=== PATIENT | female | born 1965 | race African-American/Black ===

== ENCOUNTER 2016-10-24 20:34 | Inpatient (IN) | payer OTHER ==
--- NOTE | 2016-10-24 20:57 | HP ---
[id number] 4d 4-Moderate,w/Arms Extend Anxiety: 4-Mod. Anxious/Guarded Agitation: 4-Moderately Restless Paroxysmal Sweats: 1-Minimal Palms Moist Orientation: 1-Uncertain about Date Tacttile Disturbances: 0-None Auditory Disturbances: 0-None Visual Disturbances: 0-None Headache: 1-Very Mild CIWA-Ar Total Score: 16 Admission ROS BHS - HPI Chief Complaint: withdrawal sx Allergies/Adverse Reactions: Allergies Allergy/AdvReac Type Severity Reaction Status Date / Time No Known Allergies Allergy Verified 10/24/16 22:30 History of Present Illness: 51 years old female with long history of alcohol nicotine dependence has bipolar denies medical is admitted to detox Exam Limitations: No Limitations - Ebola screening Have you traveled outside of the country in the last 21 days: No Have you had contact with anyone from an Ebola affected area: No Have you been sick,other than usual withdrawal symptoms: No Do you have a fever: No - Review of Systems Constitutional: Chills, Loss of Appetite, Changes in sleep, Unintentional Wgt. Loss, Unexplained wgt Loss EENT: reports: No Symptoms Reported Respiratory: reports: No Symptoms reported Cardiac: reports: No Symptoms Reported GI: reports: Nausea, Poor Appetite, Poor Fluid Intake, Abdominal cramping : reports: No Symptoms Reported Musculoskeletal: reports: No Symptoms Reported Integumentary: reports: No Symptoms Reported Neuro: reports: Tremors Endocrine: reports: No Symptoms Reported Hematology: reports: No Symptoms Reported Psychiatric: reports: Judgement Intact, Anxious, Depressed Other Systems: Reviewed and Negative Patient History - Patient Medical History Hx Anemia: No Hx Asthma: No Hx Chronic Obstructive Pulmonary Disease (COPD): No Hx Cancer: No Hx Cardiac Disorders: No Hx Congestive Heart Failure: No Hx Hypertension: No Hx Hypercholesterolemia: No Hx Pacemaker: No HX Cerebrovascular Accident: No Hx Seizures: No Hx Dementia: No Hx Diabetes: No Hx Gastrointestinal Disorders: No Hx Liver Disease: No Hx Genitourinary Disorders: No Hx Sexually Transmitted Disorders: No Hx Renal Disease (ESRD): No Hx Thyroid Disease: No Hx Human Immunodeficiency Virus (HIV): No Hx Hepatitis C: No Hx Depression: No Hx Suicide Attempt: No Hx Bipolar Disorder: Yes Hx Schizophrenia: No - Patient Surgical History Past Surgical History: No - PPD History Previous Implant?: Yes Documented Results: Negative w/o proof Implanted On Prior [facility] Admission?: No PPD to be Administered?: Yes - Reproductive History Patient is a Female of Child Bearing Age (11 -55 yrs old): Yes Last Menstrual Period: 09/02/12 Patient : No - Smoking Cessation Smoking history: Current every day smoker Have you smoked in the past 12 months: Yes Aproximately how many cigarettes per day: 10 Cigars Per Day: 0 Hx Chewing Tobacco Use: No Initiated information on smoking cessation: Yes 'Breaking Loose' booklet given: 10/24/16 - Substance & Tx. History Hx Alcohol Use: Yes Hx Substance Use: Yes Substance Use Type: Alcohol, Cocaine, Marijuana Hx Substance Use Treatment: Yes - Substances Abused Alcohol Route: Oral Frequency: Daily Amount used: 1 pint volka Age of first use: 14 Date of Last Use: 10/24/16 Family Disease History - Family Disease History Family Disease History: Other: Father () Other Family History: "All are healthy" Admission Physical Exam [facility] - Physical General Appearance: Yes: Appropriately Dressed, Mild Distress, Alcohol on Breath , Thin, Tremorous, Irritable, Sweating, Anxious HEENTM: Yes: Hearing grossly Normal, Normal ENT Inspection, Normocephalic, Normal Voice Respiratory: Yes: Chest Non-Tender, Lungs Clear, Normal Breath Sounds, No Respiratory Distress, No Accessory Muscle Use Neck: Yes: Supple, Trachea in good position Breast: Yes: Breasts Symetrical Cardiology: Yes: Regular Rhythm, S1, S2, Tachycardia Abdominal: Yes: Non Tender, Soft, Other (regular bowel movement daily, c/o lower quardriant intermittent pain x "months" ova parasites stool x 3) Genitourinary: Yes: Within Normal Limits Back: Yes: Normal Inspection Musculoskeletal: Yes: full range of Motion, Gait Steady Extremities: Yes: Normal Inspection, Normal Range of Motion, Non-Tender, Tremors Neurological: Yes: Alert, Motor Strength 5/5, Normal Response, Depressed Affect Integumentary: Yes: Warm Lymphatic: Yes: Within Normal Limits - Diagnostic (1) Alcohol dependence with uncomplicated withdrawal Current Visit: Yes Status: Acute (2) Cocaine dependence, uncomplicated Current Visit: Yes Status: Chronic (3) Bipolar II disorder Current Visit: Yes Status: Suspected (4) Methadone maintenance therapy patient Current Visit: Yes Status: Chronic Comment: 70 mg verification pending (5) Weight loss Current Visit: Yes Status: Acute Cleared for Admission [facility] - Detox or Rehab [facility] Level of Care: Medically Managed Detox Regimen/Protocol: Librium [facility] Breath Alcohol Content Breath Alcohol Content: 0.055 Vital Signs - Vital Signs Vital Signs Refused: No Temperature: 97.2 F Temperature Source: Oral Pulse Rate: 83 Respiratory Rate: 18 Blood Pressure: 135/87 BP Location: Left Arm Blood Pressure Position: Sitting - Height Height: 5 ft 7 in - Weight Weight: 109 lb Weight Measurement Method: Standing Scale Body Mass Index (BMI): 17.0 - Bowel Function Bowel Movement: Yes Urine Drug Screen - Control Is Test Valid: Yes - Results Drug Screen Negative: No Urine Drug Screen Results: THC-Marijuana, HAILEY-Cocaine, OPI-Opiates, MTD- Methadone
[2016-10-24 21:00] VITALS: BMI 17.0
[2016-10-24] MEDS ORDERED: MAGNESIUM CITRATE 300 ML BOTTLE PO PRN (21:01)
[2016-10-24] MEDS ORDERED: NICOTINE POLACRILEX 2 MG GUM BC PRN (21:01)
[2016-10-24] MEDS ORDERED: P-EPHED 60MG/TRIPROLIDI 2.5MG TABLET PO PRN (21:01)
[2016-10-24] MEDS ORDERED: MAG HYDROX/AL HYDROX/SIMETH 30 ML UNIT-DOSE CUP PO PRN (21:01)
[2016-10-24] MEDS ORDERED: MENTHOL/PHENOL 1 EACH UD MM PRN (21:01)
[2016-10-24] MEDS ORDERED: diphenhydrAMINE HCL 50 MG CAPSULE PO PRN (21:01)
[2016-10-24] MEDS ORDERED: IBUPROFEN 400 MG TABLET (FP) PO PRN (21:01)
[2016-10-24] MEDS ORDERED: chlordiazePOXIDE HCL 25 MG CAPSULE PO PRN (21:01)
[2016-10-24] MEDS ORDERED: LOPERAMIDE HCL 2 MG CAPSULE PO PRN (21:01)
[2016-10-24] MEDS ORDERED: guaiFENesin/D-METHORPHAN HB 10 ML UNIT-DOSE CUPS PO PRN (21:01)
[2016-10-24] MEDS ORDERED: MAGNESIUM HYDROX 2400MG/30ML ORAL SUSPENSION 30 ML CUP PO PRN (21:01)
[2016-10-24] MEDS ORDERED: ACETAMINOPHEN 325 MG TABLET (FP) PO PRN (21:01)
[2016-10-24] MEDS: chlordiazePOXIDE HCL 25 MG CAPSULE PO SCH (23:15)
[2016-10-24] MEDS: THIAMINE HCL 100 MG TABLET (FP) PO SCH (23:18)
[2016-10-25] MEDS: chlordiazePOXIDE HCL 25 MG CAPSULE PO SCH ×4 (05:37→23:03)
[2016-10-25] MEDS ORDERED: METHADONE HCL 10 MG TABLET PO ONE (09:03)
[2016-10-25] MEDS ORDERED: METHADONE 40 MG, METHADONE 30 MG PO ONE (09:20)
[2016-10-25] MEDS ORDERED: METHADONE HCL 40 MG DISPERSABLE TABLET ONE (09:52)
[2016-10-25] MEDS ORDERED: METHADONE HCL 10 MG TABLET ONE (09:52)
[2016-10-25 10:04] LABS: MCHC 33.6 g/dl (32.0-36.0); MEAN CELL VOLUME 101.2 fl (80-96); MEAN PLT VOLUME 7.4 fl (7.5-11.1); PLATELET COUNT 275 K/MM3 (134-434); RDW 13.8 % (11.6-15.6); WHITE BLOOD COUNT 5.2 K/mm3 (4.0-10.0)
[2016-10-25 10:35] LABS: ALBUMIN 3.1 g/dl (3.4-5.0); ANION GAP 5 (8-16); CALCIUM 8.5 mg/dL (8.5-10.1); CO2 30 mmol/L (21-32); CREATININE 0.9 mg/dL (0.55-1.02); GLUCOSE,RANDOM 99 mg/dL (74-106); SGOT/AST 26 U/L (15-37); SGPT/ALT 21 U/L (12-78)
[2016-10-25 10:37] LABS: ALK PHOS 76 U/L (45-117); BILIRUBIN,TOTAL 0.2 mg/dL (0.2-1.0); TOT PROT 6.5 g/dl (6.4-8.2)
[2016-10-25] MEDS: PRENATAL VITAMINS W/ FOLIC ACID TABLET (FP) PO SCH (11:05)
[2016-10-25] MEDS: NICOTINE 14 MG/24 HOURS TOPICAL PATCH TD SCH (11:08)
--- NOTE | 2016-10-25 11:51 | PN ---
S CIWA - CIWA Score Nausea/Vomitin-No Nausea/No Vomiting Muscle Tremors: 4-Moderate,w/Arms Extend Anxiety: 3 Agitation: 4-Moderately Restless Paroxysmal Sweats: 3 Orientation: 0-Oriented Tacttile Disturbances: 0-None Auditory Disturbances: 0-None Visual Disturbances: 0-None Headache: 0-None Present CIWA-Ar Total Score: 14 BHS Progress Note (SOAP) Subjective: shakes sweats agitation irritable body aches Objective: 10/25/16 11:51 Vital Signs Temperature 97.9 F 10/25/16 10:51 Pulse Rate 72 10/25/16 10:51 Respiratory Rate 18 10/25/16 10:51 Blood Pressure 120/73 10/25/16 10:51 O2 Sat by Pulse Oximetry (%) Laboratory Tests 10/25/16 10/25/16 07:00 07:00 WBC 5.2 RBC 3.43 L Hgb 11.7 D Hct 34.7 MCV 101.2 H MCHC 33.6 RDW 13.8 Plt Count 275 MPV 7.4 L Sodium 141 Potassium 4.2 Chloride 106 Carbon Dioxide 30 Anion Gap 5 L BUN 15 D Creatinine 0.9 D Creat Clearance w eGFR > 60 Random Glucose 99 D Calcium 8.5 Total Bilirubin 0.2 D AST 26 D ALT 21 D Alkaline Phosphatase 76 Total Protein 6.5 Albumin 3.1 L labs pending awake/alert ambulating no acute distress Assessment: 10/25/16 11:52 withdrawal sx Plan: continue detox increase fluids
--- NOTE | 2016-10-25 13:06 | CONSULT ---
[facility] Psychiatric Consult - Data Date of interview: 10/25/16 Admission source: [facility] Identifying data: Readmission to [facility] for this 51 y/o AA female seeking detox treatment for alcohol,cocaine and marijuana dependence.Patient is single without children,domiciled,unemployed and supported on Public Assistance. Substance Abuse History: - Smoking Cessation. Smoking history: Current every day smoker. Have you smoked in the past 12 months: Yes. Aproximately how many cigarettes per day: 10. Cigars Per Day: 0. Hx Chewing Tobacco Use: No. Initiated information on smoking cessation: Yes. 'Breaking Loose' booklet given : 10/24/16. - Substance & Tx. History. Hx Alcohol Use: Yes. Hx Substance Use : Yes. Substance Use Type: Alcohol, Cocaine, Marijuana. Hx Substance Use Treatment: Yes. - Substances Abused. Alcohol. Route: Oral. Frequency: Daily. Amount used: 1 pint volka. Age of first use: 14. Date of Last Use: 10/07. Confirmed by patient. Medical History: Patient endorses good general health. Psychiatric History: Patient is a poor and disorganized historian.She reports a remote history of psychiatric hospitalization at [facility].Diagnosed with Bipolar Disorder.Ms Hyde is currently followed at a mental health clinic (unable to recall name) in [facility].She is under the care of Dr Prema Barry and managed with depakote 1000 mg/hs + seroquel 100 mg/hs (confirmed by pharmacy claims of 08/02/16 @ [facility] # [id number]).Patient reports non -adherence to medications.No recollection of date of last medication intake.Ms Hyde denies history of suicide attempts. Physical/Sexual Abuse/Trauma History: No information. Additional Comment: Urine Drug Screen Results: THC-Marijuana, HAILEY-Cocaine, OPI- Opiates, MTD-Methadone.Noted. Mental Status Exam - Mental Status Exam Alert and Oriented to: Time, Place, Person Cognitive Function: Good Patient Appearance: Well Groomed (thin frame,tall stature) Mood: Anxious, Apprehensive Affect: Mood Congruent Patient Behavior: Sedated (moderate sedation), Fatigued Speech Pattern: Delayed, Slurred Voice Loudness: Moderately Soft/Quiet Thought Process: Disorganized Thought Disorder: Bizarre Hallucinations: Denies Suicidal Ideation: Denies Homicidal Ideation: Denies Sleep: Poorly, Difficulty falling asleep Appetite: Poor, Weight loss Muscle strength/Tone: Normal Gait/Station: Normal Psychiatric Findings - Problem List ([place] 1, 2,3) (1) Alcohol dependence with uncomplicated withdrawal Current Visit: Yes Status: Acute (2) Cocaine dependence, uncomplicated Current Visit: Yes Status: Acute (3) Cannabis dependence Current Visit: Yes Status: Acute (4) Opioid dependence on agonist therapy Current Visit: Yes Status: Acute (5) Bipolar II disorder Current Visit: Yes Status: Chronic (6) Substance induced mood disorder Current Visit: Yes Status: Acute (7) Insomnia Current Visit: Yes Status: Acute - Initial Treatment Plan Initial Treatment Plan: Psychoeducation.Detoxification.Medications : depakote 250 mg po bid + seroquel 50 mg po hs.Side effects/benefits of both drugs are discussed with patient.She is eager to resume these medications.Patient agrees with this plan of care.Observation.Labs reviewed.Ordered : valproic acid level.Will follow results.
[2016-10-25] MEDS: THIAMINE HCL 100 MG TABLET (FP) PO SCH (23:03)
[2016-10-25] MEDS: QUEtiapine FUMARATE 50 MG TABLET PO SCH (23:03)
[2016-10-25] MEDS: DIVALPROEX SODIUM 250 MG TABLET E.C. (FP) PO SCH (23:03)
[2016-10-26] MEDS ORDERED: METHADONE HCL 40 MG DISPERSABLE TABLET PO SCH (06:00)
[2016-10-26] MEDS: chlordiazePOXIDE HCL 25 MG CAPSULE PO SCH ×3 (06:06→17:32)
[2016-10-26] MEDS ORDERED: METHADONE HCL 40 MG DISPERSABLE TABLET ONE (06:07)
[2016-10-26] MEDS ORDERED: METHADONE HCL 10 MG TABLET ONE (06:07)
[2016-10-26] MEDS: METHADONE 40 MG, METHADONE 30 MG PO SCH (08:43)
[2016-10-26] MEDS: PRENATAL VITAMINS W/ FOLIC ACID TABLET (FP) PO SCH (10:39)
[2016-10-26] MEDS: DIVALPROEX SODIUM 250 MG TABLET E.C. (FP) PO SCH ×2 (10:40→22:32)
[2016-10-26] MEDS: NICOTINE 14 MG/24 HOURS TOPICAL PATCH TD SCH (10:41)
--- NOTE | 2016-10-26 14:16 | PN ---
S CIWA - CIWA Score Nausea/Vomitin Muscle Tremors: 2 Anxiety: 2 Agitation: 2 Paroxysmal Sweats: 2 Orientation: 0-Oriented Tacttile Disturbances: 1-Very Mild Itch/Numbness Auditory Disturbances: 0-None Visual Disturbances: 1-Very Mild Sensitivity Headache: 1-Very Mild CIWA-Ar Total Score: 13 S Progress Note (SOAP) Subjective: Irritability, sleeplessness, left hip pain Objective: 10/26/16 14:15 Vital Signs - 8 hr 10/26/16 10:53 Temperature 97.3 F L Pulse Rate 80 Respiratory 18 Rate Blood Pressure 108/60 Laboratory Last Values WBC 5.2 K/mm3 (4.0-10.0) 10/25/16 07:00 RBC 3.43 M/mm3 (3.60-5.2) L 10/25/16 07:00 Hgb 11.7 GM/dL (10.7-15.3) D 10/25/16 07:00 Hct 34.7 % (32.4-45.2) 10/25/16 07:00 MCV 101.2 fl (80-96) H 10/25/16 07:00 MCHC 33.6 g/dl (32.0-36.0) 10/25/16 07:00 RDW 13.8 % (11.6-15.6) 10/25/16 07:00 Plt Count 275 K/MM3 (134-434) 10/25/16 07:00 MPV 7.4 fl (7.5-11.1) L 10/25/16 07:00 Sodium 141 mmol/L (136-145) 10/25/16 07:00 Potassium 4.2 mmol/L (3.5-5.1) 10/25/16 07:00 Chloride 106 mmol/L (98-107) 10/25/16 07:00 Carbon Dioxide 30 mmol/L (21-32) 10/25/16 07:00 Anion Gap 5 (8-16) L 10/25/16 07:00 BUN 15 mg/dL (7-18) D 10/25/16 07:00 Creatinine 0.9 mg/dL (0.55-1.02) D 10/25/16 07:00 Creat Clearance w eGFR > 60 (>60) 10/25/16 07:00 Random Glucose 99 mg/dL (74-106) D 10/25/16 07:00 Calcium 8.5 mg/dL (8.5-10.1) 10/25/16 07:00 Total Bilirubin 0.2 mg/dL (0.2-1.0) D 10/25/16 07:00 AST 26 U/L (15-37) D 10/25/16 07:00 ALT 21 U/L (12-78) D 10/25/16 07:00 Alkaline Phosphatase 76 U/L (45-117) 10/25/16 07:00 Total Protein 6.5 g/dl (6.4-8.2) 10/25/16 07:00 Albumin 3.1 g/dl (3.4-5.0) L 10/25/16 07:00 RPR Titer Nonreactive (NONREACTIVE) 10/25/16 07:00 Labs noted Assessment: 10/26/16 14:16 withdrawal sx Plan: continue detox
--- NOTE | 2016-10-26 16:09 | EKG ---
Test Reason : Blood Pressure : / mmHG Vent. Rate : 065 BPM Atrial Rate : 065 BPM P-R Int : 134 ms QRS Dur : 078 ms QT Int : 458 ms P-R-T Axes : 077 058 034 degrees QTc Int : 476 ms NORMAL SINUS RHYTHM POSSIBLE LEFT ATRIAL ENLARGEMENT LEFT VENTRICULAR HYPERTROPHY ABNORMAL ECG NO PREVIOUS ECGS AVAILABLE Confirmed by SHANYA BRIGHT MD ([id number]) on 10/26/2016 4:09:04 PM Referred By: Confirmed By:SHAYNA BRIGHT MD
[2016-10-26] MEDS: THIAMINE HCL 100 MG TABLET (FP) PO SCH (22:32)
[2016-10-26] MEDS: QUEtiapine FUMARATE 50 MG TABLET PO SCH (22:32)
[2016-10-26] MEDS: chlordiazePOXIDE 5 MG CAPSULE PO SCH (22:32)
[2016-10-27] MEDS ORDERED: METHADONE HCL 10 MG TABLET ONE (05:04)
[2016-10-27] MEDS ORDERED: METHADONE HCL 40 MG DISPERSABLE TABLET ONE (05:04)
[2016-10-27] MEDS: chlordiazePOXIDE 5 MG CAPSULE PO SCH ×3 (05:39→18:16)
[2016-10-27] MEDS: METHADONE 40 MG, METHADONE 30 MG PO SCH (08:46)
[2016-10-27] MEDS: DIVALPROEX SODIUM 250 MG TABLET E.C. (FP) PO SCH ×2 (10:19→22:22)
[2016-10-27] MEDS: PRENATAL VITAMINS W/ FOLIC ACID TABLET (FP) PO SCH (10:19)
[2016-10-27] MEDS: NICOTINE 14 MG/24 HOURS TOPICAL PATCH TD SCH (10:20)
[2016-10-27 10:27] LABS: URINE APPEARANCE CLEAR; URINE BILIRUBIN NEGATIVE (NEGATIVE); URINE BLOOD NEGATIVE (NEGATIVE); URINE COLOR LTYELLOW; URINE GLUCOSE (UA) 1+ (NEGATIVE); URINE KETONE NEGATIVE (NEGATIVE); URINE NITRITE NEGATIVE (NEGATIVE); URINE PROTEIN NEGATIVE (NEGATIVE); URINE UROBILINOGEN NEGATIVE E.U./dl (0.2-1.0)
[2016-10-27 10:37] LABS: URINE LEUK ESTERASE 1+ (NEGATIVE)
[2016-10-27 11:03] LABS: URINE BACTERIA MANY /hpf (NONE SEEN); URINE RBC 1 /hpf (0-3); URINE WBC 11 /hpf (3-5)
--- NOTE | 2016-10-27 13:08 | PN ---
BHS Progress Note (SOAP) Subjective: sweating,interrupted sleep,restless. Objective: 10/27/16 13:07 Vital Signs - 8 hr 10/27/16 10/27/16 06:00 09:53 Temperature 96.6 F L 97.2 F L Pulse Rate 86 76 Respiratory 16 18 Rate Blood Pressure 104/64 91/62 Laboratory Last Values WBC 5.2 K/mm3 (4.0-10.0) 10/25/16 07:00 RBC 3.43 M/mm3 (3.60-5.2) L 10/25/16 07:00 Hgb 11.7 GM/dL (10.7-15.3) D 10/25/16 07:00 Hct 34.7 % (32.4-45.2) 10/25/16 07:00 MCV 101.2 fl (80-96) H 10/25/16 07:00 MCHC 33.6 g/dl (32.0-36.0) 10/25/16 07:00 RDW 13.8 % (11.6-15.6) 10/25/16 07:00 Plt Count 275 K/MM3 (134-434) 10/25/16 07:00 MPV 7.4 fl (7.5-11.1) L 10/25/16 07:00 Sodium 141 mmol/L (136-145) 10/25/16 07:00 Potassium 4.2 mmol/L (3.5-5.1) 10/25/16 07:00 Chloride 106 mmol/L (98-107) 10/25/16 07:00 Carbon Dioxide 30 mmol/L (21-32) 10/25/16 07:00 Anion Gap 5 (8-16) L 10/25/16 07:00 BUN 15 mg/dL (7-18) D 10/25/16 07:00 Creatinine 0.9 mg/dL (0.55-1.02) D 10/25/16 07:00 Creat Clearance w eGFR > 60 (>60) 10/25/16 07:00 Random Glucose 99 mg/dL (74-106) D 10/25/16 07:00 Calcium 8.5 mg/dL (8.5-10.1) 10/25/16 07:00 Total Bilirubin 0.2 mg/dL (0.2-1.0) D 10/25/16 07:00 AST 26 U/L (15-37) D 10/25/16 07:00 ALT 21 U/L (12-78) D 10/25/16 07:00 Alkaline Phosphatase 76 U/L (45-117) 10/25/16 07:00 Total Protein 6.5 g/dl (6.4-8.2) 10/25/16 07:00 Albumin 3.1 g/dl (3.4-5.0) L 10/25/16 07:00 Urine Color Ltyellow 10/26/16 08:40 Urine Appearance Clear 10/26/16 08:40 Urine pH 5.0 (5.0-8.0) D 10/26/16 08:40 Urine Protein Negative (NEGATIVE) 10/26/16 08:40 Urine Glucose (UA) 1+ (NEGATIVE) H 10/26/16 08:40 Urine Ketones Negative (NEGATIVE) 10/26/16 08:40 Urine Blood Negative (NEGATIVE) 10/26/16 08:40 Urine Nitrite Negative (NEGATIVE) 10/26/16 08:40 Urine Bilirubin Negative (NEGATIVE) 10/26/16 08:40 Urine Urobilinogen Negative E.U./dl (0.2-1.0) 10/26/16 08:40 Ur Leukocyte Esterase 1+ (NEGATIVE) H 10/26/16 08:40 Urine RBC 1 /hpf (0-3) 10/26/16 08:40 Urine WBC 11 /hpf (3-5) 10/26/16 08:40 Ur Epithelial Cells Rare /hpf (FEW) 10/26/16 08:40 Urine Bacteria Many /hpf (NONE SEEN) 10/26/16 08:40 Valproic Acid < 3.000 ug/ml (50-100) L 10/26/16 08:00 RPR Titer Nonreactive (NONREACTIVE) 10/25/16 07:00 labs noted Assessment: 10/27/16 13:08 Withdrawal sx. Plan: Continue detox
[2016-10-27] MEDS: THIAMINE HCL 100 MG TABLET (FP) PO SCH (22:22)
[2016-10-27] MEDS: chlordiazePOXIDE HCL 10 MG CAPSULE PO SCH (22:22)
[2016-10-27] MEDS: QUEtiapine FUMARATE 50 MG TABLET PO SCH (22:22)
[2016-10-28] MEDS ORDERED: METHADONE HCL 40 MG DISPERSABLE TABLET ONE (04:56)
[2016-10-28] MEDS ORDERED: METHADONE HCL 10 MG TABLET ONE (04:56)
[2016-10-28] MEDS: chlordiazePOXIDE HCL 10 MG CAPSULE PO SCH ×2 (06:05→12:27)
[2016-10-28 06:35] VITALS: BP 106/75; PULSE 75; TEMP 99.5
[2016-10-28] MEDS: METHADONE 40 MG, METHADONE 30 MG PO SCH (06:55)
--- NOTE | 2016-10-28 09:09 | DS ---
[facility] Detox Discharge Summary Admission Date: 10/24/16 Discharge Date: 10/28/16 - History Present History: Alcohol Dependence, Cannabis Dependence, Cocaine Dependence, MMTP - Physical Exam Results Vital Signs: Vital Signs Temperature 99.5 F 10/28/16 06:34 Pulse Rate 75 10/28/16 06:34 Respiratory Rate 18 10/28/16 06:34 Blood Pressure 106/75 10/28/16 06:34 O2 Sat by Pulse Oximetry (%) - Treatment Hospital Course: Detox Protocol Followed, Detoxed Safely, Responded well, Discharged Condition Good, Rehab Referral Accepted - Medication Discharge Medications: Ambulatory Orders Trazodone HCl 100 mg PO HS #0 tablet 02/19/12 Ziprasidone [Geodon] 40 mg PO BID #0 capsule 02/19/12 Divalproex Sodium [Depakote ER] 500 mg PO HS #30 tab.er.24h 10/25/16 Quetiapine Fumarate [Seroquel] 100 mg PO HS #30 tablet 10/25/16 - Diagnosis (1) Substance induced mood disorder Current Visit: Yes Status: Chronic (2) Weight loss Current Visit: Yes Status: Chronic (3) Alcohol dependence with uncomplicated withdrawal Current Visit: Yes Status: Chronic (4) Bipolar II disorder Current Visit: Yes Status: Chronic (5) Cannabis dependence Current Visit: Yes Status: Chronic (6) Cocaine dependence, uncomplicated Current Visit: Yes Status: Chronic (7) Insomnia Current Visit: Yes Status: Chronic (8) Methadone maintenance therapy patient Current Visit: Yes Status: Chronic - AMA Did Patient Leave Against Medical Advice: No
[2016-10-28] MEDS: NICOTINE 14 MG/24 HOURS TOPICAL PATCH TD SCH (12:26)
[2016-10-28] MEDS: DIVALPROEX SODIUM 250 MG TABLET E.C. (FP) PO SCH (12:26)
[2016-10-28] MEDS: PRENATAL VITAMINS W/ FOLIC ACID TABLET (FP) PO SCH (12:27)
== END 2016-10-28 12:00 | disposition home or self-care (01) | DRG 773 ==
LOC: YASAS 20:34 → Y6N 20:59
PROVIDERS: ADMIT Internal Medicine Addiction Medicine; ATTEND Internal Medicine Addiction Medicine
PROC: HZ2ZZZZ Detoxification Services for Substance Abuse Treatment (ICD-10-PCS; principal; 2016-10-28)
DX: F11.20 Opioid dependence, uncomplicated (principal); F10.230 Alcohol dependence with withdrawal, uncomplicated; F14.20 Cocaine dependence, uncomplicated; F12.20 Cannabis dependence, uncomplicated; F19.24 Other psychoactive substance dependence with psychoactive substance-induced mood disorder; F31.81 Bipolar II disorder; G47.00 Insomnia, unspecified; R63.4 Abnormal weight loss; Z68.1 Body mass index [BMI] 19.9 or less, adult
CPT/HCPCS: 36415; 80053; 80164; 81003; 81015; 85027; 86593; 93005; 93010